=== PATIENT | female | born 1980 | race Caucasian/White ===

== ENCOUNTER 2020-10-27 08:00 | Outpatient (CLI) | payer OTHER ==
--- NOTE | 2020-10-27 15:30 | XRAY Report ---
PROCEDURE: Hand 3 View LT INDICATIONS: LEFT HAND PAIN TECHNIQUE: 3 views of the hand(s) acquired. COMPARISON: None FINDINGS: Bones: Fracture of the base of the fifth metacarpal. Fifth metacarpal fracture is mildly displaced. Soft tissues: No suspicious soft tissue calcifications. IMPRESSION: Mildly displaced fifth the carpal fracture. Reviewed by: Rocio Borja MD, PhD on 10/27/2020 3:28 PM PST Approved by: Rocio Borja MD, PhD on 10/27/2020 3:28 PM PST Station ID: [id number]
== END 2020-10-27 23:59 | disposition home or self-care (01) ==
LOC: DI.S 08:00
PROVIDERS: ATTEND Physician Assistant Medical
DX: S62.317A Displaced fracture of base of fifth metacarpal bone, left hand, initial encounter for closed fracture (principal)

== ENCOUNTER 2020-12-25 17:38 | Outpatient (CLI) | payer OTHER ==
--- NOTE | 2020-12-25 16:05 | XRAY Report ---
PROCEDURE: Hand 3 View LT INDICATIONS: DISPLACED FX OF BASE OF L 5TH METACARPAL TECHNIQUE: 3 views of the hand(s) acquired. COMPARISON: 10/27/2020 FINDINGS: Bones: Displaced fracture of the base of the fifth metacarpal is noted. Bridging trabeculae noted fra cture site compatible with evolution of healing. Soft tissues: No suspicious soft tissue calcifications. IMPRESSION: Healing fifth metacarpal fracture. Reviewed by: Rocio Borja MD, PhD on 12/25/2020 4:04 PM PDT Approved by: Rocio Borja MD, PhD on 12/25/2020 4:04 PM PDT Station ID: [id number]
== END 2020-12-25 23:59 | disposition home or self-care (01) ==
LOC: DI.N 17:38
PROVIDERS: ATTEND Physician Assistant
DX: S62.317D Displaced fracture of base of fifth metacarpal bone, left hand, subsequent encounter for fracture with routine healing (principal)

== ENCOUNTER 2022-01-14 07:31 | Outpatient (CLI) | payer OTHER ==
[2022-01-14 14:53] LABS: BASOPHILS # (AUTO) 0.1 10^3/uL (0.0-0.1); BASOPHILS % (AUTO) 0.7 %; EOSINOPHILS # (AUTO) 0.5 10^3/uL (0.0-0.7); EOSINOPHILS % (AUTO) 6.3 %; HCT - HEMATOCRIT 40.5 % (37.0-47.0); HGB - HEMOGLOBIN 13.3 g/dL (12.0-16.0); LYMPHOCYTES # (AUTO) 2.1 10^3/uL (1.5-3.5); LYMPHOCYTES % (AUTO) 27.8 %; MEAN CORPUSCULAR HEMOGLOBIN 33.8 pg (27.0-31.0); MEAN CORPUSCULAR HGB CONC 32.8 g/dL (32.0-36.0); MEAN CORPUSCULAR VOLUME 103.1 fL (81.0-99.0); MEAN PLATELET VOLUME 11.9 fL (7.9-10.8); MONOCYTES # (AUTO) 0.7 10^3/uL (0.0-1.0); NEUTROPHILS # (AUTO) 4.1 10^3/uL (1.5-6.6); NEUTROPHILS % (AUTO) 54.9 %; PLT - PLATELET COUNT 262 10^3/uL (130-450); RED BLOOD COUNT 3.93 10^6/uL (4.20-5.40); RED CELL DISTRIBUTION WIDTH 12.6 % (12.0-15.0); WHITE BLOOD COUNT 7.4 x10^3/uL (4.8-10.8)
[2022-01-14 15:33] LABS: ALBUMIN 4.2 g/dL (3.2-5.5); ALBUMIN/GLOBULIN RATIO 1.8 (1.0-2.2); ALKALINE PHOSPHATASE 45 IU/L (42-121); ALT ALANINE AMINOTRANSFERASE 17 IU/L (10-60); AST ASPARTATE AMINOTRANSFERASE 25 IU/L (10-42); BILIRUBIN,TOTAL 0.5 mg/dL (0.2-1.0); BUN - BLOOD UREA NITROGEN 17 mg/dL (6-20); CALCIUM 9.3 mg/dL (8.5-10.3); CARBON DIOXIDE - CO2 29 mmol/L (21-32); CHLORIDE 98 mmol/L (101-111); CHOL/HDL RATIO 3.2 (<4.4); CHOLESTEROL 240 mg/dL; CREATININE 0.9 mg/dL (0.4-1.0); GFR - MDRD 69 (>89); GLUCOSE 93 mg/dL (70-100); HDL CHOLESTEROL 76 mg/dL; LDL CHOLESTEROL,CALCULATED 156 mg/dL; LDL/HDL RATIO 2.1 (<4.4); POTASSIUM 4.2 mmol/L (3.5-5.0); SODIUM 135 mmol/L (135-145); TOTAL PROTEIN 6.6 g/dL (6.7-8.2); TRIGLYCERIDES 40 mg/dL; VLDL CHOLESTEROL 8 mg/dL
[2022-01-14 15:43] LABS: THYROID STIMULATING HORMONE 3.05 uIU/mL (0.34-5.60)
== END 2022-01-14 07:32 | disposition home or self-care (01) ==
LOC: LAB.S 07:31
PROVIDERS: ATTEND Registered Nurse
DX: J45.909 Unspecified asthma, uncomplicated (principal); E03.9 Hypothyroidism, unspecified; Z79.899 Other long term (current) drug therapy
CPT/HCPCS: 36415; 80053; 80061; 83721; 84443; 85025

== ENCOUNTER 2023-04-15 08:13 | Outpatient (CLI) | payer OTHER ==
[2023-04-15 14:45] LABS: BASOPHILS # (AUTO) 0.1 10^3/uL (0.0-0.1); BASOPHILS % (AUTO) 1.1 %; EOSINOPHILS # (AUTO) 0.6 10^3/uL (0.0-0.7); EOSINOPHILS % (AUTO) 8.9 %; HCT - HEMATOCRIT 40.4 % (37.0-47.0); HGB - HEMOGLOBIN 12.9 g/dL (12.0-16.0); LYMPHOCYTES # (AUTO) 2.1 10^3/uL (1.5-3.5); LYMPHOCYTES % (AUTO) 33.5 %; MEAN CORPUSCULAR HEMOGLOBIN 32.9 pg (27.0-31.0); MEAN CORPUSCULAR HGB CONC 31.9 g/dL (32.0-36.0); MEAN CORPUSCULAR VOLUME 103.1 fL (81.0-99.0); MEAN PLATELET VOLUME 11.7 fL (7.9-10.8); MONOCYTES # (AUTO) 0.6 10^3/uL (0.0-1.0); MONOCYTES % (AUTO) 9.9 %; NEUTROPHILS # (AUTO) 2.9 10^3/uL (1.5-6.6); NEUTROPHILS % (AUTO) 46.3 %; PLT - PLATELET COUNT 231 10^3/uL (130-450); RED BLOOD COUNT 3.92 10^6/uL (4.20-5.40); RED CELL DISTRIBUTION WIDTH 13.5 % (12.0-15.0); WHITE BLOOD COUNT 6.2 x10^3/uL (4.8-10.8)
[2023-04-15 15:41] LABS: ALBUMIN 4.1 g/dL (3.2-5.5); ALBUMIN/GLOBULIN RATIO 1.8 (1.0-2.2); ALKALINE PHOSPHATASE 53 IU/L (42-121); ALT ALANINE AMINOTRANSFERASE 19 IU/L (10-60); AST ASPARTATE AMINOTRANSFERASE 21 IU/L (10-42); BILIRUBIN,TOTAL 0.4 mg/dL (0.2-1.0); BUN - BLOOD UREA NITROGEN 10 mg/dL (6-20); CARBON DIOXIDE - CO2 26 mmol/L (21-32); CHLORIDE 106 mmol/L (101-111); CHOL/HDL RATIO 4.2 (<4.4); CHOLESTEROL 216 mg/dL; CREATININE 0.7 mg/dL (0.6-1.3); GFR - MDRD 91 (>89); GLUCOSE 89 mg/dL (74-104); HDL CHOLESTEROL 51 mg/dL; LDL CHOLESTEROL,CALCULATED 139 mg/dL; LDL/HDL RATIO 2.7 (<4.4); SODIUM 136 mmol/L (135-145); TOTAL PROTEIN 6.4 g/dL (6.4-8.9); TRIGLYCERIDES 130 mg/dL (48-352); VLDL CHOLESTEROL 26 mg/dL
[2023-04-15 15:43] LABS: THYROID STIMULATING HORMONE 2.41 uIU/mL (0.34-5.60)
== END 2023-04-15 08:14 | disposition home or self-care (01) ==
LOC: LAB.S 08:13
PROVIDERS: ATTEND Registered Nurse
DX: E03.9 Hypothyroidism, unspecified (principal); Z79.899 Other long term (current) drug therapy
CPT/HCPCS: 36415; 80053; 80061; 83721; 84443; 85025

== ENCOUNTER 2024-06-11 07:33 | Outpatient (CLI) | payer OTHER ==
[2024-06-11 15:20] LABS: BASOPHILS # (AUTO) 0.1 10^3/uL (0.0-0.1); EOSINOPHILS # (AUTO) 0.4 10^3/uL (0.0-0.7); EOSINOPHILS % (AUTO) 7.4 %; HCT - HEMATOCRIT 37.7 % (37.0-47.0); HGB - HEMOGLOBIN 12.6 g/dL (12.0-16.0); LYMPHOCYTES # (AUTO) 1.7 10^3/uL (1.5-3.5); LYMPHOCYTES % (AUTO) 32.8 %; MEAN CORPUSCULAR HEMOGLOBIN 34.3 pg (27.0-31.0); MEAN CORPUSCULAR HGB CONC 33.4 g/dL (32.0-36.0); MEAN CORPUSCULAR VOLUME 102.7 fL (81.0-99.0); MEAN PLATELET VOLUME 11.5 fL (7.9-10.8); MONOCYTES # (AUTO) 0.6 10^3/uL (0.0-1.0); MONOCYTES % (AUTO) 12.5 %; NEUTROPHILS # (AUTO) 2.4 10^3/uL (1.5-6.6); NEUTROPHILS % (AUTO) 46.1 %; PLT - PLATELET COUNT 261 10^3/uL (130-450); RED BLOOD COUNT 3.67 10^6/uL (4.20-5.40); WHITE BLOOD COUNT 5.1 x10^3/uL (4.8-10.8)
[2024-06-11 15:40] LABS: ALBUMIN 4.3 g/dL (3.2-5.5); ALBUMIN/GLOBULIN RATIO 1.8 (1.0-2.2); ALKALINE PHOSPHATASE 47 IU/L (42-121); ALT ALANINE AMINOTRANSFERASE 18 IU/L (10-60); AST ASPARTATE AMINOTRANSFERASE 21 IU/L (10-42); BILIRUBIN,TOTAL 0.4 mg/dL (0.2-1.0); BUN - BLOOD UREA NITROGEN 10 mg/dL (6-20); CALCIUM 9.2 mg/dL (8.5-10.3); CARBON DIOXIDE - CO2 25 mmol/L (21-32); CHLORIDE 106 mmol/L (101-111); CHOL/HDL RATIO 4.9 (<4.4); CHOLESTEROL 262 mg/dL; CREATININE 0.6 mg/dL (0.6-1.3); GFR - MDRD 108 (>89); GLUCOSE 84 mg/dL (74-104); HDL CHOLESTEROL 54 mg/dL; LDL CHOLESTEROL,CALCULATED 165 mg/dL; LDL/HDL RATIO 3.1 (<4.4); POTASSIUM 4.1 mmol/L (3.5-4.5); SODIUM 136 mmol/L (135-145); TOTAL PROTEIN 6.7 g/dL (6.4-8.9); TRIGLYCERIDES 213 mg/dL; VLDL CHOLESTEROL 43 mg/dL
[2024-06-11 15:51] LABS: THYROID STIMULATING HORMONE 2.45 uIU/mL (0.34-5.60)
== END 2024-06-11 07:34 | disposition home or self-care (01) ==
LOC: LAB.S 07:33
PROVIDERS: ATTEND Registered Nurse
DX: Z13.228 Encounter for screening for other metabolic disorders (principal); Z13.220 Encounter for screening for lipoid disorders; Z13.29 Encounter for screening for other suspected endocrine disorder; Z13.0 Encounter for screening for diseases of the blood and blood-forming organs and certain disorders involving the immune mechanism
CPT/HCPCS: 36415; 80053; 80061; 83721; 84443; 85025